=== PATIENT | female | born 1950 | race Asian ===

== ENCOUNTER 2023-11-24 17:59 | Inpatient (IN) | payer OTHER ==
[~2023-11-24] VITALS: Ht 162.6 cm; Wt 49.4 kg
[2023-11-24 18:33] LABS: BASOPHILS % (AUTO) 0.6 % (0.0-2.0); EOSINOPHILS # (AUTO) 0.4 K/uL (0.0-0.7); EOSINOPHILS % (AUTO) 5.8 % (0.0-6.0); HEMATOCRIT 29 % (33-45); HEMOGLOBIN 9.5 g/dL (11.5-14.8); LYMPHOCYTES # (AUTO) 1.2 K/uL (0.8-4.8); LYMPHOCYTES % (AUTO) 17.1 % (20.0-44.0); MEAN CORPUSCULAR HEMOGLOBIN 32 PG (26.0-33.0); MEAN CORPUSCULAR HGB CONC 33 g/dl (31.0-36.0); MEAN CORPUSCULAR VOLUME 97 fL (82-100); MONOCYTES # (AUTO) 0.4 K/uL (0.1-1.30); MONOCYTES % (AUTO) 6.4 % (2.0-12.0); NEUTROPHILS # (AUTO) 4.8 K/uL (1.8-8.9); NEUTROPHILS % (AUTO) 70.1 % (43.0-81.0); PLATELET COUNT (AUTO) 224 K/uL (150-450); RED BLOOD CELL COUNT(AUTO) 3.01 MIL/uL (4.0-5.2); WHITE BLOOD COUNT (AUTO) 6.8 K/uL (4.3-11.0)
[2023-11-24 18:42] LABS: CALCIUM, SERUM 9.1 mg/dL (8.5-10.1); CARBON DIOXIDE 27 mmol/L (21-32); CHLORIDE 102 mmol/L (98-107); CREATININE 1.6 mg/dL (0.6-1.3); GLUCOSE 223 mg/dL (74-106); POTASSIUM 4.7 mmol/L (3.5-5.1); SODIUM SERUM 136 mmol/L (136-145); UREA NITROGEN, BLOOD 43 mg/dL (7-18)
[2023-11-24 18:56] LABS: ALANINE AMINOTRANSFERASE 21 U/L (12-78); ALBUMIN 3.6 g/dL (3.4-5.0); ALKALINE PHOSPHATASE 48 U/L (46-116); ASPARTATE AMINOTRANSFERASE 19 U/L (15-37); BILIRUBIN,DIRECT 0.1 mg/dL (0.0-0.2); BILIRUBIN,TOTAL 0.6 mg/dL (0.2-1.0); TOTAL PROTEIN, SERUM 6.9 g/dL (6.4-8.2)
[2023-11-24] MEDS ORDERED: DULO60CA45 PO (19:10)
[2023-11-24] MEDS ORDERED: FERR325T24 PO (19:10)
[2023-11-24] MEDS ORDERED: THIA100T74 PO (19:10)
[2023-11-24] MEDS ORDERED: INSU100I14 SQ (19:10)
[2023-11-24] MEDS ORDERED: FAMO20TA8 PO (19:10)
[2023-11-24] MEDS ORDERED: HYDR-4076 PO (19:10)
[2023-11-24] MEDS ORDERED: INSU100I30 SQ (19:10)
[2023-11-24] MEDS ORDERED: CHOL100043 PO (19:10)
[2023-11-24] MEDS ORDERED: GLUC1KIT IM (19:10)
[2023-11-24] MEDS ORDERED: BISA10SU11 RC (19:10)
[2023-11-24] MEDS ORDERED: ASPI-1420 PO (19:10)
[2023-11-24] MEDS ORDERED: MAGN400O6 PO (19:10)
[2023-11-24] MEDS ORDERED: ALEN70TA80 PO (19:10)
[2023-11-24] MEDS ORDERED: ACET325T53 PO (19:10)
[2023-11-24] MEDS ORDERED: NA P133E RC (19:10)
[2023-11-24] MEDS ORDERED: CARV6.252 PO (19:10)
[2023-11-24] MEDS ORDERED: ATOR20TA PO (19:10)
[2023-11-24] MEDS ORDERED: DOCU100C36 PO (19:10)
[2023-11-24 19:14] LABS: NT-PRO BNP 32545 pg/mL (0-125)
[2023-11-24] MEDS: IV NS 0.9% 1,000 ML BAG IV ONE (19:24)
[2023-11-24 21:48] LABS: APPEARANCE,URINE Clear (CLEAR); BILIRUBIN,URINE Negative (NEGATIVE); BLOOD, URINE Negative Ery/uL (NEGATIVE); COLOR,URINE YELLOW (YELLOW); KETONES,URINE Negative (NEGATIVE); LEUKOCYTE ESTERASE ,URINE Negative (NEGATIVE); NITRITE, URINE Negative (NEGATIVE); PROTEIN,URINE >=300 mg/dl (NEGATIVE); UGLUCOSE Negative (NEGATIVE)
[2023-11-24 21:49] LABS: ADD URINE CULTURE NO; BACTERIA,URINE Few /HPF (None Seen); CALCIUM OXALATE CRYSTALS,UR Few /HPF (None Seen); RBC,URINE 0-2 /HPF (0-2); SQUAMOUS EPITHELIAL CELL,UR Few /HPF (None Seen); WBC,URINE 0-2 /HPF (0-3)
[2023-11-24] MEDS ORDERED: Z GUARD REMEDY 4 OZ OINT TP PRN (22:00)
[2023-11-24] MEDS ORDERED: INSULIN REGULAR, HUMAN 100 UNIT/ML 10 ML VIAL SQ SCH (22:00)
[2023-11-24] MEDS ORDERED: FUROSEMIDE 20 MG/2 ML VIAL IV SCH (22:00)
[2023-11-24] MEDS ORDERED: ACETAMINOPHEN 325 MG TABLET PO PRN (22:00)
[2023-11-24] MEDS: BLOOD SUGAR DIAGNOSTIC 1 EACH STRIP IN SCH (22:36)
[2023-11-25] VITALS (21 sets, daily range): BP systolic 103–155; BP diastolic 62–117; TEMP 97.4–99; O2SAT 95–100
[2023-11-25] MEDS: FUROSEMIDE 20 MG/2 ML VIAL IV SCH (01:13)
[2023-11-25] MEDS: BLOOD SUGAR DIAGNOSTIC 1 EACH STRIP IN SCH ×2 (01:49→13:14)
[2023-11-25] MEDS: INSULIN REGULAR, HUMAN 100 UNIT/ML 3 ML VIAL SQ PRN ×2 (01:52→13:13)
[2023-11-25] MEDS ORDERED: DEXTROSE 50%-WATER 50 ML DISP.SYRIN IV PRN ×2 (02:00→08:30)
[2023-11-25] MEDS: ONDANSETRON HCL/PF 4 MG/2 ML VIAL IVP PRN (04:43)
[2023-11-25 05:17] LABS: ABG BASE EXCESS -8.5 mmol/L (-2.0-3.0); ABG PCO2 34.7 mmHg (32.0-45.0); ABG PH 7.306 (7.350-7.450); ABG PO2 167.1 mmHg (83.0-108.0); ABG TOTAL HEMOGLOBIN 11.7 G/dL (12.0-16.0); COHb 0.3 % (0.5-1.5); MetHb 0.3 % (0.0-1.5); O2Hb 98.4 % (94.0-97.0); SITE, ABG LEFT RADIAL
[2023-11-25] MEDS ORDERED: SODIUM BICARBONATE 5 ML VIAL IV ONE (05:30)
[2023-11-25] MEDS: SODIUM BICARBONATE SYR 50 MEQ/50 ML DISP.SYRIN IV ONE (05:46)
[2023-11-25 07:12] LABS: BASOPHILS % (AUTO) 0.5 % (0.0-2.0); HEMATOCRIT 30 % (33-45); HEMOGLOBIN 9.9 g/dL (11.5-14.8); LYMPHOCYTES # (AUTO) 0.6 K/uL (0.8-4.8); LYMPHOCYTES % (AUTO) 5.8 % (20.0-44.0); MEAN CORPUSCULAR HEMOGLOBIN 31 PG (26.0-33.0); MEAN CORPUSCULAR HGB CONC 33 g/dl (31.0-36.0); MEAN CORPUSCULAR VOLUME 95 fL (82-100); MONOCYTES # (AUTO) 0.3 K/uL (0.1-1.30); MONOCYTES % (AUTO) 3.5 % (2.0-12.0); NEUTROPHILS # (AUTO) 8.5 K/uL (1.8-8.9); NEUTROPHILS % (AUTO) 90.2 % (43.0-81.0); PLATELET COUNT (AUTO) 224 K/uL (150-450); RED BLOOD CELL COUNT(AUTO) 3.16 MIL/uL (4.0-5.2); RED CELL DISTRIBUTION WIDTH 14.5 % (11.5-15.0); WHITE BLOOD COUNT (AUTO) 9.4 K/uL (4.3-11.0)
[2023-11-25] MEDS: SODIUM BICARBONATE SYR 50 MEQ/50 ML DISP.SYRIN ONE (07:28)
[2023-11-25] MEDS ORDERED: PANTOPRAZOLE 40 MG TABLET.DR PO SCH (07:30)
[2023-11-25 07:53] LABS: ALANINE AMINOTRANSFERASE 59 U/L (12-78); ALBUMIN 3.6 g/dL (3.4-5.0); ALKALINE PHOSPHATASE 68 U/L (46-116); ASPARTATE AMINOTRANSFERASE 68 U/L (15-37); BILIRUBIN,DIRECT 0.4 mg/dL (0.0-0.2); BILIRUBIN,TOTAL 1.2 mg/dL (0.2-1.0); CALCIUM, SERUM 9.5 mg/dL (8.5-10.1); CARBON DIOXIDE 25 mmol/L (21-32); CHLORIDE 105 mmol/L (98-107); CREATININE 1.7 mg/dL (0.6-1.3); GLUCOSE 228 mg/dL (74-106); MAGNESIUM 2.5 mg/dL (1.8-2.4); NT-PRO BNP > 25000 pg/mL (0-125); PHOSPHORUS 7.3 mg/dL (2.5-4.9); POTASSIUM 5.9 mmol/L (3.5-5.1); SODIUM SERUM 142 mmol/L (136-145); TOTAL PROTEIN, SERUM 7.5 g/dL (6.4-8.2); UREA NITROGEN, BLOOD 51 mg/dL (7-18)
[2023-11-25] MEDS: PANTOPRAZOLE 40 MG VIAL IV SCH (08:18)
[2023-11-25] MEDS ORDERED: Medication Not On Formulary EA (Glucagon,Human Recombinant (Glucagon Emergency Kit) 1 MG IM PRN (09:00)
[2023-11-25] MEDS: FAMOTIDINE (20 MG) 20 MG TABLET PO SCH (09:00)
[2023-11-25] MEDS: SODIUM POLYSTYRENE SULFONATE 15 G/60 ML BOTTLE PO ONE (09:08)
[2023-11-25] MEDS: ASPIRIN EC 81 MG TABLET.DR PO SCH (09:14)
[2023-11-25] MEDS: CARVEDILOL 6.25 MG TABLET PO SCH (09:31)
[2023-11-25] MEDS: BUMETANIDE INJ 8 MG in IV NS 0.9% 48 ML IV ONE (09:54)
[2023-11-25 15:03] LABS: CALCIUM, SERUM 8.8 mg/dL (8.5-10.1); CARBON DIOXIDE 20 mmol/L (21-32); CHLORIDE 104 mmol/L (98-107); CREATININE 1.8 mg/dL (0.6-1.3); GLUCOSE 324 mg/dL (74-106); POTASSIUM 5.8 mmol/L (3.5-5.1); SODIUM SERUM 140 mmol/L (136-145); UREA NITROGEN, BLOOD 59 mg/dL (7-18)
[2023-11-25] MEDS ORDERED: MISCELLANEOUS MED 1 EA EA XX ONE (15:30)
[2023-11-25] MEDS: SODIUM ZIRCONIUM CYCLOSILICATE 10 GM POWD.PACK PO SCH (16:13)
[2023-11-25 16:46] LABS: CREATININE, URINE < 13.0 MG/DL (30.0-125.0); URINE SODIUM, RANDOM 96 mmol/l (40-220); URINE TOTAL PROTEIN 10.3 mg/dL (0-11.9)
[2023-11-26] VITALS: BP 140/90; TEMP 98.3; O2SAT 99
[2023-11-26 04:00] VITALS: BP 119/75; TEMP 98.4; O2SAT 99
[2023-11-26 07:39] LABS: BASOPHILS # (AUTO) 0.1 K/uL (0.0-0.2); EOSINOPHILS # (AUTO) 0.1 K/uL (0.0-0.7); EOSINOPHILS % (AUTO) 0.8 % (0.0-6.0); HEMATOCRIT 28 % (33-45); HEMOGLOBIN 9.2 g/dL (11.5-14.8); LYMPHOCYTES # (AUTO) 1.2 K/uL (0.8-4.8); MEAN CORPUSCULAR HEMOGLOBIN 31 PG (26.0-33.0); MEAN CORPUSCULAR HGB CONC 33 g/dl (31.0-36.0); MEAN CORPUSCULAR VOLUME 95 fL (82-100); MONOCYTES # (AUTO) 0.5 K/uL (0.1-1.30); MONOCYTES % (AUTO) 5.1 % (2.0-12.0); NEUTROPHILS % (AUTO) 79.1 % (43.0-81.0); PLATELET COUNT (AUTO) 176 K/uL (150-450); RED BLOOD CELL COUNT(AUTO) 2.95 MIL/uL (4.0-5.2); RED CELL DISTRIBUTION WIDTH 14.3 % (11.5-15.0); WHITE BLOOD COUNT (AUTO) 8.9 K/uL (4.3-11.0)
[2023-11-26 08:00] VITALS: BP 134/78; TEMP 97.9; O2SAT 100
[2023-11-26 08:08] LABS: ALANINE AMINOTRANSFERASE 768 U/L (12-78); ALBUMIN 3.3 g/dL (3.4-5.0); ALKALINE PHOSPHATASE 71 U/L (46-116); ASPARTATE AMINOTRANSFERASE 672 U/L (15-37); BILIRUBIN,TOTAL 0.7 mg/dL (0.2-1.0); CALCIUM, SERUM 8.4 mg/dL (8.5-10.1); CARBON DIOXIDE 28 mmol/L (21-32); CHLORIDE 101 mmol/L (98-107); CREATINE KINASE, TOTAL 443 U/L (26-192); CREATININE 1.9 mg/dL (0.6-1.3); GLUCOSE 175 mg/dL (74-106); PHOSPHORUS 5.1 mg/dL (2.5-4.9); POTASSIUM 3.9 mmol/L (3.5-5.1); SODIUM SERUM 139 mmol/L (136-145); TOTAL PROTEIN, SERUM 6.7 g/dL (6.4-8.2); UREA NITROGEN, BLOOD 62 mg/dL (7-18)
[2023-11-26 12:00] VITALS: BP 123/59; TEMP 97.7; O2SAT 100
[2023-11-26 16:00] VITALS: BP 130/60; TEMP 98.6; O2SAT 100
[2023-11-26 20:00] VITALS: BP 123/60; TEMP 98.1; O2SAT 99
[2023-11-27] VITALS (7 sets, daily range): BP systolic 109–150; BP diastolic 34–74; TEMP 97.5–98.6; O2SAT 99–100
[2023-11-27 07:01] LABS: BASOPHILS # (AUTO) 0.1 K/uL (0.0-0.2); BASOPHILS % (AUTO) 0.9 % (0.0-2.0); EOSINOPHILS # (AUTO) 0.4 K/uL (0.0-0.7); EOSINOPHILS % (AUTO) 5.3 % (0.0-6.0); HEMATOCRIT 29 % (33-45); HEMOGLOBIN 9.6 g/dL (11.5-14.8); LYMPHOCYTES # (AUTO) 1.1 K/uL (0.8-4.8); LYMPHOCYTES % (AUTO) 14.5 % (20.0-44.0); MEAN CORPUSCULAR HEMOGLOBIN 31 PG (26.0-33.0); MEAN CORPUSCULAR HGB CONC 33 g/dl (31.0-36.0); MEAN CORPUSCULAR VOLUME 94 fL (82-100); MONOCYTES # (AUTO) 0.5 K/uL (0.1-1.30); NEUTROPHILS # (AUTO) 5.6 K/uL (1.8-8.9); NEUTROPHILS % (AUTO) 73.3 % (43.0-81.0); PLATELET COUNT (AUTO) 153 K/uL (150-450); RED BLOOD CELL COUNT(AUTO) 3.09 MIL/uL (4.0-5.2); RED CELL DISTRIBUTION WIDTH 14.2 % (11.5-15.0); WHITE BLOOD COUNT (AUTO) 7.6 K/uL (4.3-11.0)
[2023-11-27] MEDS: PANTOPRAZOLE 40 MG TABLET.DR PO SCH (08:01)
[2023-11-27 08:11] LABS: PTH, INTACT 63 pg/mL (15-65)
[2023-11-27 08:26] LABS: ALANINE AMINOTRANSFERASE 720 U/L (12-78); ALBUMIN 2.9 g/dL (3.4-5.0); ALKALINE PHOSPHATASE 72 U/L (46-116); ASPARTATE AMINOTRANSFERASE 391 U/L (15-37); BILIRUBIN,TOTAL 0.6 mg/dL (0.2-1.0); CALCIUM, SERUM 8.3 mg/dL (8.5-10.1); CARBON DIOXIDE 28 mmol/L (21-32); CHLORIDE 102 mmol/L (98-107); CREATININE 1.5 mg/dL (0.6-1.3); MAGNESIUM 2.1 mg/dL (1.8-2.4); PHOSPHORUS 3.6 mg/dL (2.5-4.9); SODIUM SERUM 140 mmol/L (136-145); TOTAL PROTEIN, SERUM 6.2 g/dL (6.4-8.2); UREA NITROGEN, BLOOD 50 mg/dL (7-18)
[2023-11-27 08:32] LABS: GLUCOSE 224 mg/dL (74-106); POTASSIUM 2.8 mmol/L (3.5-5.1)
[2023-11-27 09:50] LABS: INR 1.31 (0.91-1.10); PROTHROMBIN TIME 13.6 SECS (9.2-11.1)
[2023-11-27] MEDS: POTASSIUM CHLORIDE 10 MEQ TABLET.SA PO ONE (11:10)
[2023-11-27] MEDS: POTASSIUM CHLORIDE 20 MEQ TAB.PRT.SR PO SCH (11:10)
[2023-11-27] MEDS: GLUCERNA SHAKE 237 ML CAN PO SCH (17:34)
[2023-11-27] MEDS: ACETAMINOPHEN 325 MG TABLET PO PRN (22:41)
[2023-11-28] VITALS: BP 111/46; TEMP 98; O2SAT 100
[2023-11-28 04:00] VITALS: BP 115/48; TEMP 98; O2SAT 100
[2023-11-28 07:02] LABS: CALCIUM, SERUM 7.2 mg/dL (8.5-10.1); CARBON DIOXIDE 31 mmol/L (21-32); CHLORIDE 98 mmol/L (98-107); CREATININE 1.4 mg/dL (0.6-1.3); GLUCOSE 142 mg/dL (74-106); POTASSIUM 3.4 mmol/L (3.5-5.1); SODIUM SERUM 138 mmol/L (136-145); UREA NITROGEN, BLOOD 42 mg/dL (7-18)
[2023-11-28 08:00] VITALS: BP 152/93; TEMP 97.9; O2SAT 100
[2023-11-28] MEDS: POTASSIUM CHLORIDE 20 MEQ TAB.PRT.SR PO SCH (10:06)
[2023-11-28 12:00] VITALS: BP 126/89; TEMP 96.5; O2SAT 100
[2023-11-28 16:00] VITALS: BP 108/88; TEMP 97.9; O2SAT 97
[2023-11-28 20:00] VITALS: BP 104/68; TEMP 97.7; O2SAT 100
[2023-11-29] VITALS (8 sets, daily range): BP systolic 108–147; BP diastolic 60–85; TEMP 96.8–98.4; O2SAT 99–100
[2023-11-29] MEDS: ALBUTEROL FS 2.5 MG/3 ML VIAL.NEB NEB PRN (03:20)
[2023-11-29 07:25] LABS: CALCIUM, SERUM 8.3 mg/dL (8.5-10.1); CARBON DIOXIDE 31 mmol/L (21-32); CHLORIDE 100 mmol/L (98-107); CREATININE 1.4 mg/dL (0.6-1.3); GLUCOSE 204 mg/dL (74-106); POTASSIUM 4.9 mmol/L (3.5-5.1); SODIUM SERUM 137 mmol/L (136-145); UREA NITROGEN, BLOOD 45 mg/dL (7-18)
[2023-11-29 15:38] LABS: PROTEIN, BODY FLUID 1.5 G/DL
[2023-11-29 16:07] LABS: APPEARANCE,SPUN,BODY FLUID CLEAR (CLEAR); TOTAL VOLUME,BODY FLUID 600 mL; WBC, BODY FLUID 900 /cu. mm. (0-200)
[2023-11-29 19:37] LABS: MACROPHAGES, BODY FLUID 7; MONOCYTES,BODY FLUID 0 %; POLYNUCLEAR, BODY FLUID 0 % (0-25)
[2023-11-30] VITALS: BP 129/91; TEMP 96.8; O2SAT 100
[2023-11-30 04:00] VITALS: BP 104/96; TEMP 97; O2SAT 100
[2023-11-30 07:47] LABS: CALCIUM, SERUM 7.9 mg/dL (8.5-10.1); CARBON DIOXIDE 31 mmol/L (21-32); CHLORIDE 102 mmol/L (98-107); CREATININE 1.3 mg/dL (0.6-1.3); GLUCOSE 130 mg/dL (74-106); POTASSIUM 4.4 mmol/L (3.5-5.1); SODIUM SERUM 138 mmol/L (136-145); UREA NITROGEN, BLOOD 49 mg/dL (7-18)
[2023-11-30 08:00] VITALS: BP 158/85; TEMP 98.2; O2SAT 99
[2023-11-30 09:11] LABS: *SPE A/G RATIO 1.1 (0.7-1.7); *SPE ALBUMIN 3.3 g/dL (2.9-4.4); *SPE ALPHA-1-GLOBULIN 0.2 g/dL (0.0-0.4); *SPE ALPHA-2-GLOBULIN 0.9 g/dL (0.4-1.0); *SPE BETA GLOBULIN 0.9 g/dL (0.7-1.3); *SPE M-SPIKE Not Observed g/dL (Not Observed); *SPE PROTEIN TOTAL 6.3 g/dL (6.0-8.5); *SPEGAMMA GLOBULIN 0.9 g/dL (0.4-1.8)
[2023-11-30 12:00] VITALS: BP 115/68; TEMP 97.1; O2SAT 100
[2023-11-30] MEDS ORDERED: FURO-145 PO (13:25)
[2023-11-30 16:00] VITALS: BP 127/77; TEMP 97.9; O2SAT 97
[2023-11-30 16:21] VITALS: BP 127/77
== END 2023-11-30 19:23 | DRG 194 ==
LOC: ER 18:07 → TELE 11-25 00:26 → ICU 11-25 06:20 → TELE1 11-25 16:42 → TELE-TD 11-25 17:42 → TELE1 11-30 09:49
PROVIDERS: ADMIT Nurse Practitioner Family; ATTEND Nurse Practitioner Family
PROC: 05HB33Z Insertion of Infusion Device into Right Basilic Vein, Percutaneous Approach (ICD-10-PCS; 2023-11-28)
PROC: 0W9B3ZX Drainage of Left Pleural Cavity, Percutaneous Approach, Diagnostic (ICD-10-PCS; principal; 2023-11-29)
DX: I13.0 Hypertensive heart and chronic kidney disease with heart failure and stage 1 through stage 4 chronic kidney disease, or unspecified chronic kidney disease (principal); J96.01 Acute respiratory failure with hypoxia; G92.8 Other toxic encephalopathy; N17.9 Acute kidney failure, unspecified; J91.8 Pleural effusion in other conditions classified elsewhere; D63.8 Anemia in other chronic diseases classified elsewhere; E87.20 Acidosis, unspecified; I50.33 Acute on chronic diastolic (congestive) heart failure; N18.30 Chronic kidney disease, stage 3 unspecified; E87.5 Hyperkalemia; E11.22 Type 2 diabetes mellitus with diabetic chronic kidney disease; K21.9 Gastro-esophageal reflux disease without esophagitis; Z79.82 Long term (current) use of aspirin; Z79.899 Other long term (current) drug therapy; Z79.4 Long term (current) use of insulin; F03.90 Unspecified dementia, unspecified severity, without behavioral disturbance, psychotic disturbance, mood disturbance, and anxiety; I25.10 Atherosclerotic heart disease of native coronary artery without angina pectoris; I25.5 Ischemic cardiomyopathy; K59.00 Constipation, unspecified; E87.6 Hypokalemia; M89.8X9 Other specified disorders of bone, unspecified site; Z86.73 Personal history of transient ischemic attack (TIA), and cerebral infarction without residual deficits; Z89.512 Acquired absence of left leg below knee; E11.65 Type 2 diabetes mellitus with hyperglycemia; E11.51 Type 2 diabetes mellitus with diabetic peripheral angiopathy without gangrene; G60.9 Hereditary and idiopathic neuropathy, unspecified; E78.5 Hyperlipidemia, unspecified; R94.31 Abnormal electrocardiogram [ECG] [EKG]; J98.11 Atelectasis
CPT/HCPCS: 36415; 36600; 71045-TC; 71250-TC; 80048-TC; 80053-TC; 80076-TC; 81001; 82550-TC; 82553; 82570-TC; 82803-TC; 82962-TC; 83690-TC; 83735-TC; 83880; 83970; 84100-TC; 84155; 84165; 84300-TC; 84443-TC; 84484-TC; 85025-TC; 85610-TC; 87086-TC; 87102-TC; 89051-TC; 92526; 92611-TC; 93307-TC; 94760-TC; 94762-TC; 94799-TC; A4223; G0378; J1815; J1940; J2405; J2470; J3490; J7030; J7050